=== PATIENT | female | born 1960 | race Caucasian/White ===

== ENCOUNTER 2023-02-21 16:42 | Emergency (ER) | payer OTHER, SELFPAY ==
--- NOTE | ~2023-02-21 | XR_ITS ---
EXAMINATION: XR foot RT min 3V DATE: 02/21/2023 18:16 INDICATION: Right foot pain and bruising post blunt trauma TECHNIQUE: Dorsoplantar, two oblique and lateral views of the right foot were obtained. COMPARISON: None. FINDINGS: Bone alignment is normal. No acute fracture. Ossification at the distal tip of the lateral malleolus which could represent either a chronic nonunited avulsion fracture or heterotopic ossicle related to chronic lateral ankle sprain. Polyarticular osteoarthritis, moderate severity at the second and third tarsal metatarsal joints and several of the interphalangeal joints. Mild osteoarthritis at many of t he remaining joints in the mid and forefoot. IMPRESSION: 1. No acute osseous abnormality. 2. Mild to moderate osteoarthritis in the mid and forefoot. Reviewed, dictated and finalized at location A.
--- NOTE | 2023-02-21 17:35 | ED.LOWEXIN ---
HPI - Extremity Injury (Lower) General Chief Complaint: Extremity Injury, Lower <Felicity Paige APRN - Last Filed: 02/21/23 20:14> Stated Complaint: Right Foot Pain <Felicity Paige APRN - Last Filed: 02/21/23 20:14> Time Seen by Provider: 02/21/23 17:35 <Felicity Paige PARTS IDENTIFICATION TECHNICIAN - Last Filed: 02/21/23 20:14> Source: patient, RN notes reviewed and old records reviewed <Felicity Paige APRN - Last Filed: 02/21/23 20:14> Mode of arrival: ambulatory <Felicity Paige APRN - Last Filed: 02/21/23 20:14> Limitations: no limitations <Felicity Paige APRN - Last Filed: 02/21/23 20:14> History of Present Illness HPI Narrative: 62-year-old female presents to the [facility] with right foot pain after dropping a 20 lb picture frame on her right foot. Bruising noted to top of the right foot. <Felicity Paige PARTS IDENTIFICATION TECHNICIAN - Last Filed: 02/21/23 20:14> Onset (ago): hour(s) <Felicity Paige APRN - Last Filed: 02/21/23 20:14> Injury: Right: foot <Felicity Paige PARTS IDENTIFICATION TECHNICIAN - Last Filed: 02/21/23 20:14> Place: home <Felicity Paige APRN - Last Filed: 02/21/23 20:14> Related Data Home Medications: Home Medications Medication Instructions Recorded Confirmed albuterol sulfate 90 mcg/actuation 2 puff inhalation DIRECTED 02/21/23 02/21/23 aerosol inhaler amlodipine 5 mg tablet 5 mg PO DAILY 02/21/23 02/21/23 atorvastatin 20 mg tablet 20 mg PO DAILY 02/21/23 02/21/23 lisinopril 40 mg tablet 40 mg PO DAILY 02/21/23 02/21/23 sertraline 100 mg tablet 100 mg PO DAILY 02/21/23 02/21/23 <Felicity Paige, PARTS IDENTIFICATION TECHNICIAN - Last Filed: 02/21/23 20:14> Allergies/Adverse Reactions: Allergies Allergy/AdvReac Type Severity Reaction Status Date / Time Contrast Media Allergy Unknown HIVES Uncoded 02/21/23 17:07 <Felicity A. Hebertdell PARTS IDENTIFICATION TECHNICIAN - Last Filed: 02/21/23 20:14> Review of Systems Review of Systems: All systems reviewed & are unremarkable except as noted in HPI and below <Felicity A. Hebertdell, PARTS IDENTIFICATION TECHNICIAN - Last Filed: 02/21/23 20:14> Constitutional: Constitutional: Reports no additional constitutional complaints <Felicity A. Hebertdell, PARTS IDENTIFICATION TECHNICIAN - Last Filed: 02/21/23 20:14> Eyes: Eyes: Reports no additional eye complaints <Felicity A. Hebertdell, PARTS IDENTIFICATION TECHNICIAN - Last Filed: 02/21/23 20:14> ENT: Reports system reviewed and no additional complaints, except as documented <Felicity A. Hebertdell, PARTS IDENTIFICATION TECHNICIAN - Last Filed: 02/21/23 20:14> Cardiovascular: Cardiovascular: Reports no additional cardiovascular complaints, Denies chest pain and Denies dyspnea <Felicity A. Hebertdell, PARTS IDENTIFICATION TECHNICIAN - Last Filed: 02/21/23 20:14> Respiratory: Respiratory: Reports no additional respiratory complaints, Denies chest congestion, Denies cough and Denies dyspnea <Felicity A. Hebertdell, PARTS IDENTIFICATION TECHNICIAN - Last Filed: 02/21/23 20:14> Gastrointestinal: Gastrointestinal: Reports no additional gastrointestinal complaints, Denies abdominal pain, Denies nausea and Denies vomiting <Felicity A. Hebertdell, PARTS IDENTIFICATION TECHNICIAN - Last Filed: 02/21/23 20:14> Musculoskeletal: Musculoskeletal: Reports as per HPI and Reports other (Pain, bruising top of right foot) <Felicity A. Hebertdell, PARTS IDENTIFICATION TECHNICIAN - Last Filed: 02/21/23 20:14> Integumentary/Breasts: Skin/Breast: Reports system reviewed and no additional complaints, except as docu <Felicity A. Hebertdell, PARTS IDENTIFICATION TECHNICIAN - Last Filed: 02/21/23 20:14> Neurologic: Reports system reviewed and no additional complaints, except as documented <Felicity A. Royal, PARTS IDENTIFICATION TECHNICIAN - Last Filed: 02/21/23 20:14> Psychiatric: Psychiatric: Reports no additional psychiatric complaints <Felicity A. Royal, PARTS IDENTIFICATION TECHNICIAN - Last Filed: 02/21/23 20:14> Allergic/Immunologic: Allergic/Immunologic: Reports no additional allergic/immunologic complaints <Felicity Paige, PARTS IDENTIFICATION TECHNICIAN - Last Filed: 02/21/23 20:14> [facility] Past Medical History Medical History: Medical History (Updated 02/21/23 @ 18:38 by GRACIA Marte) High cholesterol Hypertension <Felicity Paige, PARTS IDENTIFICATION TECHNICIAN - Last Filed: 02/21/23 20:14> Surgical History Surgical History: S
[2023-02-21 17:36] VITALS: BP 173/71; PULSE 80; RESP 18; TEMP 36.8; O2SAT 99
== END 2023-02-21 18:53 | disposition home or self-care (01) ==
PROVIDERS: Emergency Provider Nurse Practitioner Family; PCP Internal Medicine
DX: S90.31XA Contusion of right foot, initial encounter (principal); I10 Essential (primary) hypertension; W20.8XXA Other cause of strike by thrown, projected or falling object, initial encounter
CPT/HCPCS: 73630; 99213; G0463